=== PATIENT | female | born 1955 | race Caucasian/White ===

== ENCOUNTER 2019-03-03 09:56 | Emergency (ER) | payer SELFPAY ==
[~2019-03-03] VITALS: Ht 160 cm; Wt 73.0 kg
[2019-03-03] MEDS ORDERED: IBUPROFEN 600MG TABLET PO ONE (10:30)
[2019-03-03] MEDS ORDERED: TRAMADOL 50MG TABLET PO ONE (10:30)
[2019-03-03 12:00] VITALS: BP 105/65
== END 2019-03-03 12:05 | disposition home or self-care (01) ==
LOC: ER 09:56
DX: M54.6 Pain in thoracic spine (principal); R07.89 Other chest pain; I10 Essential (primary) hypertension; V19.88XA Pedal cyclist (driver) (passenger) injured in other specified transport accidents, initial encounter; Y93.55 Activity, bike riding; Y92.89 Other specified places as the place of occurrence of the external cause; Y99.8 Other external cause status
CPT/HCPCS: 71250; 99284